=== PATIENT | female | born 1945 | race Caucasian/White ===

== ENCOUNTER 2018-07-30 14:14 | Emergency (ER) | payer MEDICARE ==
--- NOTE | 2018-07-30 14:52 | ERPHSYRPT ---
- History of Present Illness Time Seen by Provider: 07/30/18 14:47 Source: patient, family Exam Limitations: no limitations Patient Subjective Stated Complaint: Pt daughter states "She is hallucinating and when she changed her colostomy it had a horrific odor and I also think she has a UTI. She thinks that they are telling her over the intercom to not go to the bathroom, not smoke and some other things." Triage Nursing Assessment: Pt alert and confused, ambulates with an upright steady gait, able to speak in clear full sentences. PT sitting calmly. Physician History: 72 y/o white female with mild dementia lives in an independent living apartment , presents with increasing confusion over last 48 hours. pt has permanent ostomy in place. daughter is primary home health provider, visiting mother nearly daily. pt had stated she heard her daughter outside her apartment but people would not allow daughter into apartment. this never happened. both daughter and pt deny head injury. pt denies cp, soa and abd pain. pt has not been eating or drinking as well as usual. there has not been n/v/d Timing/Duration: hour(s) (48) Severity: mild Associated Symptoms: loss of appetite, No nausea, No vomiting, No abdominal pain , No shortness of breath, No diaphoresis, No cough, No chest pain Allergies/Adverse Reactions: Penicillins Allergy (Intermediate, Verified 07/30/18 14:33) Home Medications: Clonazepam 1 tab PO DAILY 07/30/18 [History] Gabapentin 100 mg PO DAILY 07/30/18 [History] Hydrocodone Bit/Acetaminophen [[place] 5-325 Tablet] 1 each PO DAILY 07/30/18 [ History] Imipramine HCl [Tofranil] 25 mg PO DAILY 07/30/18 [History] Pravastatin Sodium 80 mg PO DAILY 07/30/18 [History] Hx Tetanus, Diphtheria Vaccination/Date Given: Yes Hx Influenza Vaccination/Date Given: Yes Hx Pneumococcal Vaccination/Date Given: Yes Immunizations Up to Date: Yes - Review of Systems Constitutional: No Symptoms, No Fever Eyes: No Symptoms Ears, Nose, & Throat: No Symptoms Respiratory: No Symptoms, No Cough, No Dyspnea, No Stridor, No Wheezing Cardiac: No Symptoms, No Chest Pain, No Palpitations, No Syncope Abdominal/Gastrointestinal: No Symptoms, No Abdominal Pain, No Nausea, No Vomiting, No Diarrhea Genitourinary Symptoms: No Symptoms, No Dysuria, No Frequency, No Hematuria Musculoskeletal: No Symptoms, No Back Pain, No Neck Pain, No Deformity, No Fall , No Injury Skin: No Symptoms Neurological: No Symptoms, No Dizziness, No Focal Weakness, No Gait Changes Psychological: Hallucinations, Other (confusion) Endocrine: No Symptoms Hematologic/Lymphatic: No Symptoms Immunological/Allergic: No Symptoms All Other Systems: Reviewed and Negative - Past Medical History Pertinent Past Medical History: Yes Neurological History: Dementia ENT History: No Pertinent History Cardiac History: No Pertinent History Respiratory History: No Pertinent History Endocrine Medical History: No Pertinent History Musculoskeletal History: No Pertinent History GI Medical History: No Pertinent History History: No Pertinent History Psycho-Social History: No Pertinent History Female Reproductive Disorders: No Pertinent History Other Medical History: dementia, - Past Surgical History Past Surgical History: Yes Neuro Surgical History: No Pertinent History Cardiac: No Pertinent History Respiratory: No Pertinent History Gastrointestinal: Colon Resection, Other (permanent ostomy) Genitourinary: No Pertinent History Musculoskeletal: No Pertinent History Female Surgical History: No Pertinent History Other Surgical History: colostomy - Social History Smoking Status: Current every day smoker How long have you smoked: 2 packs Exposure to second hand smoke: Yes Drug Use: none Patient Lives Alone: Yes - Female History Hx Now: No - Nursing Vital Signs Nursing Vital Signs: Initial Vital Signs Temperature 98.7 F 07/30/18 14:20 Pulse Rate 86 07/30/18 14:20 Respiratory Rate 18 07/30/18 14:20 Blood Pressure 155/80 07/30/18 14:20 O2 Sat by Pulse Oximetry 98 07/30/18 14:20 Pain Scale Pain Intensity 0 - Physical Exam General Appearance: no apparent distress, alert Eye Exam: PERRL/EOMI, eyes nml inspection Ears, Nose, Throat Exam: normal ENT inspection, TMs normal, pharynx normal, moist mucous membranes Neck Exam: normal inspection, non-tender, supple, full range of motion Respiratory Exam: normal breath sounds, lungs clear, airway intact, No chest tenderness, No respiratory distress, No accessory muscle use, No rhonchi, No wheezing, No stridor Cardiovascular Exam: regular rate/rhythm, normal heart sounds, normal peripheral pulses Gastrointestinal/Abdomen Exam: soft, normal bowel sounds, No tenderness, No guarding, No rebound Pelvic Exam: not done Rectal Exam: not done Back Exam: normal inspection, normal range of motion, No CVA tenderness, No vertebral tenderness Extremity Exam: normal inspection, normal range of motion, pelvis stable Neurologic Exam: alert, oriented x 3, cooperative, education faculty member II-XII nml as tested, normal mood/affect, No disoriented, No uncooperative, No intoxicated appearance , No facial droop, No slurred speech, No aphasia, No dysarthria Skin Exam: normal color, warm, dry Lymphatic Exam: No adenopathy SpO2 Interpretation: normal SpO2: 98 Oxygen Delivery: Room Air - Course Nursing assessment & vital signs reviewed: Yes Ordered Tests: Active Orders 24 hr Category Date Time Status Clean Catch Urine Specimen STAT Care 07/30/18 14:56 Active IV Insertion STAT Care 07/30/18 14:56 Active CBC W DIFF Stat Lab 07/30/18 15:00 Completed CMP Stat Lab 07/30/18 15:00 Completed UA W/RFX UR CULTURE Stat Lab 07/30/18 16:30 Completed Urine Triage Profile Stat Lab 07/30/18 17:05 Completed Medication Summary Discontinued Medications Generic Name Dose Route Start Last Admin Trade Name Freq PRN Reason Stop Dose Admin Sodium Chloride 500 mls @ 500 mls/hr 07/30/18 14:57 07/30/18 14:59 Sodium Chloride 0.9% 500 Ml IV 07/30/18 15:56 500 mls/hr .Q1H ONE Administration Sodium Chloride Confirm 07/30/18 14:59 Sodium Chloride 0.9% 500 Ml Administered 07/30/18 15:00 Dose 500 mls @ ud IV .STK-MED ONE Lab/Rad Data: Laboratory Result Diagrams 07/30/18 15:00 07/30/18 15:00 Laboratory Results 07/30/18 07/30/18 07/30/18 Range/Units 17:05 16:30 15:00 WBC (4.0-10.5) K/mm3 RBC (4.1-5.4) M/mm3 Hgb (12.0-16.0) gm/dl Hct (35-47) % MCV (78-100) fl MCH (26-32) pg MCHC (32-36) g/dl RDW (11.5-14.0) % Plt Count (150-450) K/mm3 MPV (6-9.5) fl Gran % (36.0-66.0) % Eos # (Auto) (0-0.5) Absolute Lymphs (auto) (1.0-4.6) Absolute Monos (auto) (0.0-1.3) Lymphocytes % (24.0-44.0) % Monocytes % (0.0-12.0) % Eosinophils % (0.00-5.0) % Basophils % (0.0-0.4) % Absolute Granulocytes (1.4-6.9) Basophils # (0-0.4) Sodium 137 (137-145) mmol/L Potassium 4.1 (3.5-5.1) mmol/L Chloride 99 (98-107) mmol/L Carbon Dioxide 29 (22-30) mmol/L Anion Gap 13.7 (5-15) MEQ/L BUN 11 (7-17) mg/dL Creatinine 0.64 (0.52-1.04) mg/dL Estimated GFR > 60.0 ML/MIN Glucose 104 (74-106) mg/dL Calcium 9.6 (8.4-10.2) mg/dL Total Bilirubin 0.30 (0.2-1.3) mg/dL AST 20 (14-36) U/L ALT 14 (0-35) U/L Alkaline Phosphatase 91 (38-126) U/L Serum Total Protein 7.6 (6.3-8.2) g/dL Albumin 4.6 (3.5-5.0) g/dL Urine Color YELLOW (YELLOW) Urine Appearance CLEAR (CLEAR) Urine pH 6.0 (5-6) Ur Specific [place] 1.006 (1.005-1.025) Urine Protein NEGATIVE (Negative) Urine Ketones NEGATIVE (NEGATIVE) Urine Blood NEGATIVE (0-5) Harry/ul Urine Nitrite NEGATIVE (NEGATIVE) Urine Bilirubin NEGATIVE (NEGATIVE) Urine Urobilinogen NEGATIVE (0-1) mg/dL Ur Leukocyte Esterase NEGATIVE (NEGATIVE) Urine WBC (Auto) 0-2 (0-5) /HPF U Epithel Cells (Auto) RARE (FEW) /HPF Urine Bacteria (Auto) RARE (NEGATIVE) /HPF Urine Mucus (Auto) SLIGHT (NEGATIVE) /HPF Urine Culture Reflexed NO (NO) Urine Glucose NEGATIVE (NEGATIVE) mg/dL Urine Opiates Level POSITIVE (NEGATIVE) Ur Methadone NEGATIVE (NEGATIVE) Urine Barbiturates NEGATIVE (NEGATIVE) Ur Phencyclidine (PCP) NEGATIVE (NEGATIVE) Urine Amphetamine NEGATIVE (NEGATIVE) U Benzodiazepine Level NEGATIVE (NEGATIVE) Urine Cocaine NEGATIVE (NEGATIVE) Urine Marijuana (THC) NEGATIVE (NEGATIVE) 07/30/18 Range/Units 15:00 WBC 8.1 (4.0-10.5) K/mm3 RBC 4.11 (4.1-5.4) M/mm3 Hgb 13.4 (12.0-16.0) gm/dl Hct 41.1 (35-47) % MCV 100.0 (78-100) fl MCH 32.6 H (26-32) pg MCHC 32.6 (32-36) g/dl RDW 12.5 (11.5-14.0) % Plt Count 291 (150-450) K/mm3 MPV 10.1 H (6-9.5) fl Gran % 58.6 (36.0-66.0) % Eos # (Auto) 0.19 (0-0.5) Absolute Lymphs (auto) 2.26 (1.0-4.6) Absolute Monos (auto) 0.85 (0.0-1.3) Lymphocytes % 28.0 (24.0-44.0) % Monocytes % 10.5 (0.0-12.0) % Eosinophils % 2.4 (0.00-5.0) % Basophils % 0.5 (0.0-0.4) % Absolute Granulocytes 4.73 (1.4-6.9) Basophils # 0.04 (0-0.4) Sodium (137-145) mmol/L Potassium (3.5-5.1) mmol/L Chloride (98-107) mmol/L Carbon Dioxide (22-30) mmol/L Anion Gap (5-15) MEQ/L BUN (7-17) mg/dL Creatinine (0.52-1.04) mg/dL Estimated GFR ML/MIN Glucose (74-106) mg/dL Calcium (8.4-10.2) mg/dL Total Bilirubin (0.2-1.3) mg/dL AST (14-36) U/L ALT (0-35) U/L Alkaline Phosphatase (38-126) U/L Serum Total Protein (6.3-8.2) g/dL Albumin (3.5-5.0) g/dL Urine Color (YELLOW) Urine Appearance (CLEAR) Urine pH (5-6) Ur Specific [place] (1.005-1.025) Urine Protein (Negative) Urine Ketones (NEGATIVE) Urine Blood (0-5) Harry/ul Urine Nitrite (NEGATIVE) Urine Bilirubin (NEGATIVE) Urine Urobilinogen (0-1) mg/dL Ur Leukocyte Esterase (NEGATIVE) Urine WBC (Auto) (0-5) /HPF U Epithel Cells (Auto) (FEW) /HPF Urine Bacteria (Auto) (NEGATIVE) /HPF Urine Mucus (Auto) (NEGATIVE) /HPF Urine Culture Reflexed (NO) Urine Glucose (NEGATIVE) mg/dL Urine Opiates Level (NEGATIVE) Ur Methadone (NEGATIVE) Urine Barbiturates (NEGATIVE) Ur Phencyclidine (PCP) (NEGATIVE) Urine Amphetamine (NEGATIVE) U Benzodiazepine Level (NEGATIVE) Urine Cocaine (NEGATIVE) Urine Marijuana (THC) (NEGATIVE) - Progress Progress: unchanged Progress Note: 07/30/18 17:03 i had a long d/w pt and daughter. they do not want a ct scan of brain. they want a uds added. pt has a h/o sig brain "shrinkage" and dementia. there has been no psychiatric or neurologic recently. pt is not homicidal or suicidal. pt has not had any new meds. after return of uds, pt wants discharge to home for her to follow up tomorrow with psychiatry and neurology as an outpatient. Counseled pt/family regarding: lab results, diagnosis, need for follow-up, smoking cessation - Departure Time of Disposition: 17:46 Departure Disposition: Home Clinical Impression: Confusion, Dementia Condition: Stable Critical Care Time: No Referrals: KHAI DOMÍNGUEZ [Primary Care Provider] - Additional Instructions: drink plenty of fluids. follow up with psychiatry and neurology tomorrow for further management
[2018-07-30] MEDS ORDERED: Sodium Chloride 0.9% 500 ML 500 ML IV ONE ×2 (14:57→14:59)
[2018-07-30 15:07] LABS: BASOPHIL % 0.5 % (0.0-0.4); Basophil (Absolute #) 0.04 (0-0.4); Eosinophil % 2.4 % (0.00-5.0); Eosinophil (Absolute #) 0.19 (0-0.5); Granulocyte Absolute (ANC) 4.73 (1.4-6.9); Granulocytes % 58.6 % (36.0-66.0); Hematocrit 41.1 % (35-47); Hemoglobin 13.4 gm/dl (12.0-16.0); Lymphocyte (Absolute #) 2.26 (1.0-4.6); Mean Corpuscular Hemoglobin 32.6 pg (26-32); Mean Corpuscular Hgb Concent. 32.6 g/dl (32-36); Mean Platelet Volume 10.1 fl (6-9.5); Monocyte (Absolute #) 0.85 (0.0-1.3); Monocytes % 10.5 % (0.0-12.0); Platelet Count 291 K/mm3 (150-450); Red Blood Count 4.11 M/mm3 (4.1-5.4); Red Cell Distribution Width 12.5 % (11.5-14.0); White Blood Count 8.1 K/mm3 (4.0-10.5)
[2018-07-30 15:17] LABS: ALBUMIN 4.6 g/dL (3.5-5.0); ALKALINE PHOSPHATASE 91 U/L (38-126); ANION GAP 13.7 MEQ/L (5-15); BLOOD UREA NITROGEN 11 mg/dL (7-17); CHLORIDE 99 mmol/L (98-107); Calcium 9.6 mg/dL (8.4-10.2); Carbon Dioxide 29 mmol/L (22-30); Creatinine 1 0.64 mg/dL (0.52-1.04); Glucose 104 mg/dL (74-106); Potassium 4.1 mmol/L (3.5-5.1); SGOT/AST 20 U/L (14-36); SGPT/ALT 14 U/L (0-35); SODIUM 137 mmol/L (137-145); Total Protein 7.6 g/dL (6.3-8.2)
[2018-07-30 16:18] VITALS: BP 128/71
[2018-07-30 16:37] LABS: Appearance CLEAR (CLEAR); Bilirubin NEGATIVE (NEGATIVE); Blood NEGATIVE Ery/ul (0-5); Glucose NEGATIVE (NEGATIVE); Ketones NEGATIVE (NEGATIVE); Leukocyte Esterase NEGATIVE (NEGATIVE); Nitrite NEGATIVE (NEGATIVE); Protein,Urine Dip NEGATIVE (Negative); Specific Gravity 1.006 (1.005-1.025); Urobilinogen NEGATIVE mg/dL (0-1)
[2018-07-30 17:30] LABS: Amphetamine,Urine NEGATIVE (NEGATIVE); Barbiturate,Urine NEGATIVE (NEGATIVE); Benzodiazepine,Urine NEGATIVE (NEGATIVE); Cocaine,Urine NEGATIVE (NEGATIVE); Methadone,Urine NEGATIVE (NEGATIVE); Opiate,Urine POSITIVE (NEGATIVE); PCP,Urine NEGATIVE (NEGATIVE); THC,Urine NEGATIVE (NEGATIVE)
[2018-07-30 18:11] VITALS: PULSE 78; O2SAT 99
== END 2018-07-30 18:11 | disposition home or self-care (01) ==
LOC: ED 14:14
DX: R41.0 Disorientation, unspecified (principal); F03.90 Unspecified dementia, unspecified severity, without behavioral disturbance, psychotic disturbance, mood disturbance, and anxiety; R44.3 Hallucinations, unspecified; Z79.899 Other long term (current) drug therapy
CPT/HCPCS: 36000; 36415; 80053; 80307; 81001; 85025; 96360; 96374; 99284